=== PATIENT | male | born 1985 | race African-American/Black ===

== ENCOUNTER 2024-08-07 06:30 | Inpatient (IN) | payer BC, MEDICAID ==
[~2024-08-07] VITALS: Ht 345.4 cm; Wt 48.6 kg
[2024-08-07] MEDS: DILTIAZEM HCL 5MG/ML 5ML VIAL IV ONE (06:49)
[2024-08-07] MEDS: SODIUM CHLORIDE 0.9% 1,000 ML IV ONE (06:49)
[2024-08-07] MEDS: DILTIAZEM HCL 60MG TABLET PO ONE (06:59)
[2024-08-07 07:32] LABS: BASOPHILS % 0.4 % (0.0-2.0); HEMATOCRIT. 40.1 % (42.0-52.0); HEMOGLOBIN. 13.9 g/dL (14.0-18.0); LYMPHOCYTES % 14.7 % (20.0-50.0); MEAN CORPUSCULAR HEMOGLOBIN 31.8 pg (28.0-32.0); MEAN CORPUSCULAR HGB CONC 34.5 g/dL (31.0-37.0); MEAN CORPUSCULAR VOLUME 92.1 fL (80.0-94.0); MEAN PLATELET VOLUME 8.1 fl (7.4-10.4); MONOCYTES % 6.6 % (2.0-8.0); NEUTROPHILS % 77.3 % (40.0-76.0); PLATELET 202 x1000/uL (130-400); RED BLOOD CELL COUNT 4.36 mill/uL (4.7-6.1); RED CELL DISTRIBUTION WIDTH 13.8 % (11.6-14.6); WHITE BLOOD COUNT 10.5 x1000/uL (4.5-11.0)
[2024-08-07 07:41] LABS: CHLORIDE 106 mEq/L (98-107); POTASSIUM 3.3 mEq/L (3.5-5.1); SODIUM 144 mEq/L (136-145)
[2024-08-07 07:42] LABS: CARBON DIOXIDE 23 mEq/L (21-32)
[2024-08-07 07:43] LABS: CALCIUM 9.3 mg/dL (8.7-10.4)
[2024-08-07 07:47] LABS: CREATININE 0.9 mg/dL (0.6-1.3); GLUCOSE 106 mg/dL (70-105); UREA NITROGEN BLOOD 12 mg/dL (9-23)
[2024-08-07 07:59] LABS: TROPONIN I HIGH SENSITIVITY 85 ng/L (3.0-53)
[2024-08-07] MEDS: ENOXAPARIN 60MG/0.6ML SYR SUBCUT ONE (09:06)
[2024-08-07 09:28] LABS: TROPONIN I HIGH SENSITIVITY 384 ng/L (3.0-53)
[2024-08-07 10:15] VITALS: BP 125/83; PULSE 71; RESP 16; TEMP 36.2; O2SAT 98
[2024-08-07] MEDS ORDERED: CLONIDINE 0.1MG TABLET PO PRN (10:15)
[2024-08-07] MEDS ORDERED: ACETAMINOPHEN 325MG TABLET PO PRN ×2 (10:15)
[2024-08-07] MEDS ORDERED: DOCUSATE SODIUM 100MG CAPSULE PO PRN (10:15)
[2024-08-07] MEDS ORDERED: IPRATROPIUM/ALBUTEROL 0.5-3(2.5)MG/3ML NEB HHN PRN (10:15)
[2024-08-07] MEDS ORDERED: ONDANSETRON HCL 4MG/2ML INJ IV PRN (10:15)
[2024-08-07 11:20] VITALS: BP 125/83; PULSE 71; RESP 17; TEMP 36.3
[2024-08-07 12:00] VITALS: BP 137/90; PULSE 89; RESP 18; TEMP 36.8; O2SAT 100
[2024-08-07] MEDS: ASPIRIN 81MG TABLET PO SCH (12:48)
[2024-08-07] MEDS: POTASSIUM CHLORIDE 20MEQ TABLET SR PO NR (12:49)
[2024-08-07] MEDS: DILTIAZEM HCL 30MG TABLET PO SCH (13:55)
[2024-08-07] MEDS: PANTOPRAZOLE SODIUM 40 MG/VIAL IV SCH (14:59)
[2024-08-07 16:00] VITALS: BP 145/82; PULSE 63; RESP 18; TEMP 36.7; O2SAT 100
[2024-08-07 16:50] LABS: CREATINE KINASE MB FRACTION 1.8 ng/mL (0.5-3.6)
[2024-08-07 17:07] LABS: PROTHROMBIN TIME 10.5 sec (9.6-11.0)
[2024-08-07 21:00] VITALS: BP 133/84; PULSE 78; RESP 18; TEMP 37.1; O2SAT 99
[2024-08-07 21:31] LABS: TROPONIN I HIGH SENSITIVITY 92 ng/L (3.0-53)
[2024-08-07] MEDS: ENOXAPARIN 60MG/0.6ML SYR SUBCUT SCH (21:40)
[2024-08-08] VITALS (7 sets, daily range): BP systolic 124–149; BP diastolic 81–92; PULSE 61–98; RESP 18; TEMP 36.2–36.6; O2SAT 97–100
[2024-08-08 09:49] LABS: CREATINE KINASE MB FRACTION 0.7 ng/mL (0.5-3.6)
== END 2024-08-08 19:40 | disposition short-term general hospital (02) | DRG 282 ==
LOC: ER 06:30 → 6WST 08:35 → EDBEDREQ 08:37 → EDBEDREQTM 08:37 → ENRESERV 09:51
PROVIDERS: ADMIT Internal Medicine; ATTEND Internal Medicine
DX: I21.4 Non-ST elevation (NSTEMI) myocardial infarction (principal); I48.91 Unspecified atrial fibrillation; F10.90 Alcohol use, unspecified, uncomplicated; Z20.822 Contact with and (suspected) exposure to COVID-19; Z60.2 Problems related to living alone; I25.2 Old myocardial infarction; Z79.01 Long term (current) use of anticoagulants
CPT/HCPCS: 36415; 71045; 80048; 82550; 82553; 83880; 84484; 85025; 87426; 93005; 99285; J1650; J2470; J3490; J7030